=== PATIENT | female | born 1985 | race African-American/Black ===

== ENCOUNTER → 2021-12-15 | Outpatient (CLI) | payer OTHER ==
[~2021-12-15] MED LIST: MOTRIN 800800 MG/TAB PO; NORCO 325 MG-51 TAB PO; ZITHROMAX Z PA250 MG PO; [UNRECOGNIZED DRUG - OTHER] PO
== END ==
LOC: COL.RAD 13:15
DX: M50.222 Other cervical disc displacement at C5-C6 level (principal); M48.02 Spinal stenosis, cervical region; G43.709 Chronic migraine without aura, not intractable, without status migrainosus

== ENCOUNTER 2023-09-24 11:07 | Day surgery (SDC) | payer OTHER ==
[2023-09-24] VITALS (9 sets, daily range): BP systolic 118–128; BP diastolic 66–82; PULSE 66–76; TEMP 97.9
[~2023-09-24] VITALS: Ht 165.1 cm; Wt 108.8 kg
[2023-09-24 11:51] LABS: HEMATOCRIT 34.6 % (37.0-47.0); HEMOGLOBIN 11.9 g/dl (12.5-16.0); MEAN CELL VOLUME 75 fl (80.0-100.0); MEAN CORPUSCULAR HEMOGLOBIN 26 pg (27-31); MEAN CORPUSCULAR HGB CONC 34 g/dl (33.0-37.0); MEAN PLATELET VOLUME 9.2 fl (7.4-10.4); PLATELET COUNT 352 K/mm3 (130-400); RED BLOOD COUNT 4.62 M/mm3 (4.10-5.30)
[2023-09-24] MEDS ORDERED: AJOVY AUTO225 MG/1.5 SQ (12:09)
[2023-09-24] MEDS ORDERED: PLAVIX 75MG TAB75 MG PO (12:10)
[2023-09-24] MEDS ORDERED: VERELAN120 MG PO (12:11)
[2023-09-24] MEDS ORDERED: ASPIRIN 81M81 MG/TA2 PO (12:11)
[2023-09-24] MEDS ORDERED: CRESTOR20 MG PO (12:12)
[2023-09-24] MEDS ORDERED: MICARDIS20 MG PO (12:12)
[2023-09-24] MEDS ORDERED: TOPAMAX 25MG25 M1 PO (12:14)
[2023-09-24] MEDS ORDERED: IMITREX50 MG PO (12:14)
[2023-09-24 12:26] LABS: CALCIUM 9.5 mg/dL (8.4-10.2); CREATININE, serum 0.78 mg/dL (0.57-1.11); PROTHROMBIN TIME 10.9 SECONDS (9.7-12.8)
[2023-09-24 12:29] LABS: PARTIAL THROMBOPLASTIN TIME 35.2 SECONDS (26.0-37.0)
--- NOTE | 2023-09-24 12:50 | NUR ---
Please see merge documentation for record of interventions, vitals and medications administered during left heart cath.
--- NOTE | 2023-09-24 17:23 | NUR ---
PT TOLERATED RECOVERY PERIOD WELL AND WAS ASSISTED TO ER LOBBY VIA WHEELCHAIR. PT WAS PICKED UP BY . IV DISCONTINUED AND PT'S VS REMAINED WITHIN NORMAL LIMITS. PT VERBALIZED UNDERSTANDING OF DISCHARGE INSTRUCTIONS. PT'S RIGHT RADIAL DRESSING WAS CLEAN DRY AND INTACT AND RIGHT ARM REMAINED FREE FROM SIGNS OF BLEEDING AND HEMATOMA. PT FREE FROM ACUTE CONCERNS AND COMPLAINTS UPON DISCHARGE.
== END 2023-09-24 17:30 | disposition home or self-care (01) ==
LOC: COL.CAR 11:07
PROVIDERS: Internal Medicine Interventional Cardiology
DX: R07.9 Chest pain, unspecified (principal); R94.39 Abnormal result of other cardiovascular function study; I10 Essential (primary) hypertension; Z79.82 Long term (current) use of aspirin; Z79.899 Other long term (current) drug therapy
CPT/HCPCS: C1769; J1644; J2250; J3010; Q9967

== ENCOUNTER 2024-03-04 07:55 | Inpatient (IN) | payer OTHER ==
[~2024-03-04] VITALS: Ht 165.1 cm; Wt 98.7 kg
[2024-03-04] VITALS (7 sets, daily range): BP systolic 116–148; BP diastolic 68–84; PULSE 74–78; TEMP 98.1–98.3
[~2024-03-04 07:55] MED LIST changes: +AJOVY AUTO225 MG/1.5 SQ; +ASPIRIN 81M81 MG/TA2 PO; +CRESTOR20 MG PO; +IMITREX50 MG PO; +MICARDIS20 MG PO; +PLAVIX 75MG TAB75 MG PO; +TOPAMAX 25MG25 M1 PO; +VERELAN120 MG PO
--- NOTE | 2024-03-04 08:04 | NUR ---
[id number]. COLEMAN AT [facility] CALLED [employer] INST[employer] [facility] REQUESTING TRANSFER AND ADMISSION FOR PATIENT WITH AFIB RVR. [facility] TRANSFERRED CALL TO HOSPITALIST DR. SHAW. [phone]. SHAW CALLED STATING THAT SHE WILL ACCEPT PATIENT FOR INPATIENT STATUS TO THE MEDICAL FLOOR WITH MANAGER TELEMETRY DR. ARROYO TO CONSULT. 709-[facility] NOTIFIED OF ACCEPTANCE, AND THEY STATED PATIENT IS ON A SET DILTIAZEM DRIP AND WILL SEND PATIENT VIA EMS ONCE I CALL BACK WITH ROOM ASSIGNMENT.
[2024-03-04] MEDS ORDERED: AJOVY225 MG/1.5 SQ (10:41)
--- NOTE | 2024-03-04 10:44 | NUR ---
PATIENT ARRIVED TO MEDICAL UNIT AT THIS TIME. ADMISSION INTAKE AND ASSESSMENT COMPLETED. MED REC UPDATED. PATIENT UPDATED ON PLAN OF CARE AND ORIENTED TO ROOM. PATIENT IS COMPLAINING OF HEADACHE. DENIES ANY CHEST PAIN OR SOA. CALL LIGHT WITHIN REACH. WILL CONTINUE TO MONITOR.
[2024-03-04] MEDS ORDERED: Acetaminophen 500 MG TAB PO PRN (11:00)
[2024-03-04] MEDS ORDERED: Polyethylene Glycol 3350 17 GM PDS PO PRN (11:00)
[2024-03-04] MEDS ORDERED: Ondansetron 4 MG/2 ML VIAL IV PRN (11:00)
[2024-03-04] MEDS ORDERED: Apixaban 5 MG TABLET PO SCH (12:04)
[2024-03-04 12:27] LABS: BASO % 0.3 % (0.0-2.0); EOS # 0.1 K/mm3 (0.0-0.7); EOS % 1.7 % (0.0-4.0); GRAN # 3.8 K/mm3 (1.4-6.5); GRAN % 58.8 % (42.2-75.2); HEMOGLOBIN 12.8 g/dl (12.5-16.0); LYMPH % 31.3 % (20.0-51.0); MEAN CELL VOLUME 73 fl (80.0-100.0); MEAN CORPUSCULAR HEMOGLOBIN 26 pg (27-31); MEAN CORPUSCULAR HGB CONC 36 g/dl (33.0-37.0); MEAN PLATELET VOLUME 9.3 fl (7.4-10.4); MONO # 0.5 K/mm3 (0.1-0.6); MONO % 7.7 % (1.7-9.3); PLATELET COUNT 346 K/mm3 (130-400); RED BLOOD COUNT 4.91 M/mm3 (4.10-5.30); REDCELL DISTRIBUTION WIDTH-CV 16.2 % (11.5-14.5)
--- NOTE | 2024-03-04 12:38 | NUR ---
Data: Patient accepted [employer] visit offered during [employer] rounds. Patient transferred here from [facility] on [address]. Assessment: Patient is concerned about her heart; however, believes that she is being well cared for and the outcome will be positive. Plan of Care: [employer] Superintendent provided supportive listening and prayer. Patient thanked [employer] Superintendent for the visit. Chaplains will remain available as needed/requested while Patient is admitted to this hospital.
[2024-03-04 12:42] LABS: ALBUMIN 3.6 g/dL (3.5-5.0); BILIRUBIN,TOTAL 0.5 mg/dL (0.2-1.2); CALCIUM 8.9 mg/dL (8.4-10.2); CREATININE, serum 0.74 mg/dL (0.57-1.11); MAGNESIUM 1.8 mg/dL (1.6-2.6); POTASSIUM 4.2 mEq/L (3.5-4.5); TOTAL PROTEIN 6.9 g/dl (6.2-8.1)
[2024-03-04 13:03] LABS: TSH w REFLEX 0.884 uIU/mL (0.350-4.940)
[2024-03-04 13:12] LABS: COLLECTION METHOD CLEAN CATCH
[2024-03-04 13:26] LABS: PH 5.5 (5.0-8.5); URINE APPEARANCE CLOUDY (CLEAR/HAZY); URINE BLOOD 3+ (NEGATIVE); URINE COLOR RED (YELLOW); URINE GLUCOSE NEGATIVE (NEGATIVE); URINE KETONE NEGATIVE (NEGATIVE); URINE NITRATE NEGATIVE (NEGATIVE); URINE PROTEIN(semi-quant) TRACE (NEGATIVE); URINE UROBILINOGEN 0.2 E.U/dL (0.2-1.0)
[2024-03-04] MEDS ORDERED: SUMAtriptan 25 MG TAB PO PRN (17:30)
[2024-03-04] MEDS ORDERED: dilTIAZem CD (24-HR) 120 MG CAP PO SCH (21:00)
--- NOTE | 2024-03-04 21:30 | NUR ---
Pt. sitting up in bed. Pt. is A&OX3, assessment complete. INT to bilateral forarms patent. Pt. denies pain or other needs, call light within reach.
[2024-03-05] VITALS (7 sets, daily range): BP systolic 106–148; BP diastolic 60–77; PULSE 75–84; TEMP 97.8–98.4
[2024-03-05 06:54] LABS: BASO % 0.3 % (0.0-2.0); EOS # 0.2 K/mm3 (0.0-0.7); EOS % 3.2 % (0.0-4.0); GRAN # 3.4 K/mm3 (1.4-6.5); GRAN % 51.3 % (42.2-75.2); HEMOGLOBIN 12.2 g/dl (12.5-16.0); LYMPH # 2.5 K/mm3 (1.2-3.4); LYMPH % 37.4 % (20.0-51.0); MEAN CELL VOLUME 73 fl (80.0-100.0); MEAN CORPUSCULAR HEMOGLOBIN 27 pg (27-31); MEAN CORPUSCULAR HGB CONC 36 g/dl (33.0-37.0); MEAN PLATELET VOLUME 9.6 fl (7.4-10.4); MONO # 0.5 K/mm3 (0.1-0.6); MONO % 7.6 % (1.7-9.3); PLATELET COUNT 332 K/mm3 (130-400); RED BLOOD COUNT 4.61 M/mm3 (4.10-5.30)
[2024-03-05 06:57] LABS: HEMATOCRIT 33.8 % (37.0-47.0)
[2024-03-05 07:17] LABS: ALBUMIN 3.4 g/dL (3.5-5.0); BILIRUBIN,TOTAL 0.7 mg/dL (0.2-1.2); CALCIUM 8.8 mg/dL (8.4-10.2); CREATININE, serum 0.81 mg/dL (0.57-1.11); POTASSIUM 3.6 mEq/L (3.5-4.5); TOTAL PROTEIN 6.5 g/dl (6.2-8.1)
--- NOTE | 2024-03-05 09:18 | NUR ---
PATIENT SITTING UP IN BED UPON ENTERING ROOM. MORNING MEDICATIONS ADMINSTERED. SHIFT ASSESSMENT COMPLETED. PATIENT DENIES ANY CHEST PAIN, SOB, OR PALPITATIONS OVERNIGHT. 24 HOUR URINE IS STILL BEING COLLECTED. UPDATED PATIENT ON PLAN OF CARE. CALL LIGHT WITHIN REACH, WILL CONTINUE TO MONITOR.
--- NOTE | 2024-03-05 09:37 | NUR ---
SW met with patient to complete intake. Patient provides she lives in [place] with spouse Vernon Mccabe [phone]. Patient provides she is independent with ADLs, does not utiliz DME, and does not utilize home health services. PCP is at [facility] as well as pharmacy. Patient states that he plans to return to her home upon discharge. SW will continue to follow. Discharge plan: home
[2024-03-05] MEDS ORDERED: TAMBOCOR 1100 MG/TAB PO (12:12)
[2024-03-05] MEDS ORDERED: ELIQUIS 5MG PO (12:12)
[2024-03-05] MEDS ORDERED: CARDIZEM CD 12120 MG PO (12:13)
--- NOTE | 2024-03-05 13:09 | NUR ---
IV AND TELEMETRY DISCONTINUED. DISCHARGE INSTRUCTIONS REVIEWED, ALL QUESTIONS ANSWERED. PATIENT IS WAITING FOR HER RIDE TO ARRIVE.
--- NOTE | 2024-03-05 13:27 | NUR ---
PATIENT ESCORTED OFF OF UNIT BY VIA [facility] STAFF.
== END 2024-03-05 13:28 | disposition home or self-care (01) | DRG 310 ==
LOC: MEDICAL 07:55
PROVIDERS: ADMIT Internal Medicine
DX: I48.0 Paroxysmal atrial fibrillation (principal); G43.909 Migraine, unspecified, not intractable, without status migrainosus; I95.9 Hypotension, unspecified; I10 Essential (primary) hypertension; Z87.891 Personal history of nicotine dependence; Z79.899 Other long term (current) drug therapy

== ENCOUNTER 2024-04-07 10:57 | Day surgery (SDC) | payer OTHER ==
[~2024-04-07] VITALS: Ht 165.1 cm; Wt 106.8 kg
[~2024-04-07 10:57] MED LIST changes: +AJOVY225 MG/1.5 SQ; +CARDIZEM CD 12120 MG PO; +ELIQUIS 5MG PO; +TAMBOCOR 1100 MG/TAB PO
[2024-04-07] MEDS ORDERED: XOPENEX HF0.045 MG/A IH (11:16)
[2024-04-07] MEDS ORDERED: IRON TABLETS325 MG PO (11:16)
[2024-04-07] MEDS ORDERED: TAMBOCOR150 MG PO (11:17)
[2024-04-07 11:27] VITALS: BP 150/55; PULSE 68; TEMP 98.4
[2024-04-07 14:24] VITALS: BP 149/88; PULSE 75
--- NOTE | 2024-04-07 14:27 | NUR ---
Dr Hogan gives phone order to discharge patient, stating he is having computer issues. DC instructions reviewed with pt, she expresses understanding. Dressing over loop insert site remains clean, dry and intact. Pt free of complaints. She is steady on her feet. She is escorted out to elevator, gait steady.
== END 2024-04-07 14:27 | disposition home or self-care (01) ==
LOC: COL.CAR 10:57
DX: I48.0 Paroxysmal atrial fibrillation (principal); R07.89 Other chest pain; Z79.01 Long term (current) use of anticoagulants; Z79.899 Other long term (current) drug therapy; Z87.891 Personal history of nicotine dependence
CPT/HCPCS: C1764